=== PATIENT | female | born 1965 | race American Indian/Alaskan Native ===

== ENCOUNTER 2018-11-24 11:52 | Emergency (ER) | payer OTHER ==
--- NOTE | 2018-11-24 12:02 | Emergency Department Report ---
Blank Doc - Documentation Documentation: This is a [id number] that presents with HTN. Was sent by PCP. Had EKG done but not with her and stated PCP stated EKG was normal. Denies any complaints. Denies any headache. Stated takes lisionpril and HCTZ but has not taken HCTZ because she ran out. Will ordered labs Sent to [facility] for further evaluation and treatment
[2018-11-24 12:27] LABS: Basophils # (Auto) 0.1 K/mm3 (0.0-0.1); Basophils % (Auto) 0.9 % (0.0-1.8); Eosinophils # (Auto) 0.5 K/mm3 (0.0-0.4); Eosinophils % (Auto) 5.1 % (0.0-4.3); Hematocrit 36.7 % (30.3-42.9); Lymphocytes # (Auto) 3.4 K/mm3 (1.2-5.4); Lymphocytes % (Auto) 33.4 % (13.4-35.0); Mean Corpuscular HGB Conc 33 % (30-34); Mean Corpuscular Volume 77 fl (79-97); Monocytes # (Auto) 0.6 K/mm3 (0.0-0.8); Monocytes % (Auto) 5.5 % (0.0-7.3); Platelet Count 260 K/mm3 (140-440); Red Blood Count 4.78 M/mm3 (3.65-5.03); Red Cell Distribution Width 16.5 % (13.2-15.2)
[2018-11-24 12:46] LABS: BUN/Creatinine Ratio 11; Blood Urea Nitrogen 9 mg/dL (7-17); Calcium 9.2 mg/dL (8.4-10.2); Hemolysis Index 4
[2018-11-24] MEDS ORDERED: CATAPRES ONE (13:34)
--- NOTE | 2018-11-24 13:39 | Emergency Department Report ---
ED General Adult HPI - General Chief complaint: High BP Stated complaint: HBP Time Seen by Provider: 11/24/18 12:02 Source: patient Mode of arrival: Ambulatory Limitations: No Limitations - History of Present Illness Initial comments: Patient is a 53-year-old black female who states that her lisinopril is although she has been taking it but she also has run out of her hydrochlorothiazide. Patient states she went to her primary care physician today to get a refill and was told that her blood pressure was too high a sneeze come to the emergency department. Patient states she is completely asymptomatic and denies any chest pain shortness of breath nausea vomiting diarrhea headache focal neurological deficit or decreased urination. Patient here for evaluation and potential medication refill. Severity scale (0 -10): 0 - Related Data Previous Rx's Medication Instructions Recorded Last Taken Type Lisinopril [Zestril] 40 mg PO DAILY #30 tablet 11/24/18 Unknown Rx hydroCHLOROthiazide [HCTZ] 25 mg PO QDAY #30 tablet 11/24/18 Unknown Rx Allergies Allergy/AdvReac Type Severity Reaction Status Date / Time No Known Allergies Allergy Unverified 11/24/18 11:53 ED Review of Systems ROS: Stated complaint: HBP Other details as noted in HPI Comment: All other systems reviewed and negative ED Past Medical Hx - Past Medical History Hx Hypertension: Yes - Surgical History Additional Surgical History: HYSTO, CARPEL ZAYRA AND ROTATOR CUFF - Medications Home Medications: Home Medications Medication Instructions Recorded Confirmed Last Taken Type Lisinopril [Zestril] 40 mg PO DAILY #30 tablet 11/24/18 Unknown Rx hydroCHLOROthiazide [HCTZ] 25 mg PO QDAY #30 tablet 11/24/18 Unknown Rx ED Physical Exam - General Limitations: No Limitations General appearance: alert, in no apparent distress - Head Head exam: Present: atraumatic, normocephalic - Eye Eye exam: Present: normal appearance - ENT ENT exam: Present: mucous membranes moist - Neck Neck exam: Present: normal inspection - Respiratory Respiratory exam: Present: normal lung sounds bilaterally. Absent: respiratory distress, wheezes, rales, rhonchi - Cardiovascular Cardiovascular Exam: Present: regular rate, normal rhythm. Absent: systolic murmur, diastolic murmur, rubs, gallop - GI/Abdominal GI/Abdominal exam: Present: soft, normal bowel sounds. Absent: distended, te nderness, guarding, rebound - Extremities Exam Extremities exam: Present: normal inspection - Back Exam Back exam: Present: normal inspection - Neurological Exam Neurological exam: Present: alert, oriented X3 - Psychiatric Psychiatric exam: Present: normal affect, normal mood - Skin Skin exam: Present: warm, dry, intact, normal color. Absent: rash ED Course Vital Signs 11/24/18 12:02 Temperature 98.1 F Pulse Rate 91 H Respiratory 91 H Rate Blood Pressure 242/144 [Right] O2 Sat by Pulse 98 Oximetry ED Medical Decision Making - Lab Data Result diagrams: 11/24/18 12:14 11/24/18 12:14 - Medical Decision Making Repeat blood pressure before any medication was 208/116. Patient was given Catapres 0.1 mg by mouth 1. Patient be discharged home with prescriptions for her medications. Critical care attestation.: If time is entered above; I have spent that time in minutes in the direct care of this critically ill patient, excluding procedure time. ED Disposition Clinical Impression: Hypertensive urgency Disposition: DC-01 TO HOME OR SELFCARE Is pt being admited?: No Does the pt Need Aspirin: No Condition: Stable Instructions: Hypertension (ED) Time of Disposition: 13:41
[2018-11-24] MEDS ORDERED: CATAPRES PO ONE (13:40)
[2018-11-24 13:55] VITALS: BP 196/113
== END 2018-11-24 14:17 | disposition home or self-care (01) ==
LOC: ED 11:52
DX: I16.0 Hypertensive urgency (principal); Z76.0 Encounter for issue of repeat prescription
CPT/HCPCS: 36415; 80048; 85025; 99283